=== PATIENT | female | born 1985 | race Caucasian/White ===

== ENCOUNTER 2024-05-04 18:52 | Emergency (ER) | payer OTHER, SELFPAY ==
[2024-05-04 19:07] VITALS: BP 170/102; PULSE 74; TEMP 36.7; O2SAT 98; BMI 44.4
--- NOTE | 2024-05-04 19:24 | PC.NURSE ---
Pt presents to ER for symptomatic HTN Pt states she had been feeling off for about a month and went to her PCP who started her on Metoprolol for HTN Pt states she also had lab work done which she reports was all normal Pt states she has been feeling slightly dizzy, headache, slight blurry vision and weakness Pt states at home her top number has been over 180 consistently.
--- NOTE | 2024-05-04 19:26 | ECG_ITS ---
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
--- NOTE | 2024-05-04 19:26 | XR_ITS ---
The [address] [address] Patient Name: FELI BURDEN MRN: [id number] date: 1985 Sex: F Assigned Patient Location: ED.MAIN Current Patient Location: ER Accession/Order Number: [id number] Exam Date: 05/04/2024 20:10 Report Date: 05/04/2024 20:50 At the request of: ERIC PALOMARES Procedure: XR chest 1V EXAM: XR chest 1V COMPARISON: 01/06/2023 CLINICAL INDICATION: Dizziness. FINDINGS: Evaluation slightly limited by patient body habitus. The cardiomediastinal silhouette is within normal limits. No focal consolidation. No pleural effusion. No pneumothorax. No evidence of acute osseous abnormality. XR/XR chest 1V IMPRESSION: No acute findings. Electronically authenticated by: JUAN MANNING Date: 05/04/2024 20:50
--- NOTE | 2024-05-04 19:35 | ED.GENADUL1 ---
HPI HPI - General Adult General Chief complaint: Recheck/Abnormal Lab/Rx Stated complaint: Dizziness Time Seen by Provider: 05/04/24 19:15 Source: patient Mode of arrival: walk-in Limitations: no limitations History of Present Illness HPI narrative: 38-year-old female to the emergency department with dizziness and feeling generally well since starting Toprol 2 days ago. She denies any chest pain or shortness of breath. She denies any fever, sweats, chills. No nausea vomiting diarrhea. She is otherwise been at her baseline health. She reports that she has a history of gestational hypertension. Was diagnosed with hypertension by nurse practitioner whom she saw in office. Related Data Previous Rx's ?Medication ?Instructions ?Recorded losartan 25 mg tablet 25 mg PO DAILY #30 tabs 05/04/24 Allergies Allergy/AdvReac Type Severity Reaction Status Date / Time cefaclor [From Ceclor] Allergy Verified 05/04/24 19:11 Penicillins Allergy Verified 05/04/24 19:11 Opioid HPI Opioid Management Most Recent Opioid Data: No Data to Display Review of Systems ROS Status of ROS 10 or more systems reviewed and unremarkable except as noted in history and below Exam Narrative Exam Narrative: VITALS: I have reviewed the triage vital signs. GENERAL: Well developed, well appearing adult in no acute distress. NEURO: Alert and oriented. Moves all extremities. Face is symmetric and expressive. EYES: PERRL. No scleral icterus or conjunctival injection. No discharge. HENT: Normocephalic, atraumatic. Hearing is grossly intact. Nares grossly patent and without discharge. Mucous membranes moist. NECK: No JVD. Patient moves neck without restriction. CARDIO: Rhythm regular. Normal rate. No murmur, rub, or gallop. Pulses equal bilaterally in the upper and lower extremity. No lower extremity edema. PULM: Lungs clear to auscultation in all sommers. No wheezes, rales, or rhonchi. No conversational dyspnea. No splinting, stridor, or accessory muscle use. GI/: Abdomen is soft and non-tender. Normoactive bowel sounds. EXTREMITIES: Symmetric muscle bulk. No joint swelling. No clubbing, cyanosis, or deformity. SKIN: Warm and dry. Normal turgor. No rash or lesions appreciated. PSYCH: Mood, affect, and interaction is appropriate to the setting. Constitutional Vital Signs, click to edit/add: Last Vital Signs Temp 98.0 F 05/04/24 19:07 Pulse 74 05/04/24 19:07 Resp 16 05/04/24 19:07 BP 158/94 H 05/04/24 20:55 Pulse Ox 98 05/04/24 19:07 Course Vital Signs Vital signs: Vital Signs Temperature 98.0 F 05/04/24 19:07 Pulse Rate 74 05/04/24 19:07 Respiratory Rate 16 05/04/24 19:07 Blood Pressure 170/102 H 05/04/24 19:07 Pulse Oximetry 98 05/04/24 19:07 Temperature 98.0 F 05/04/24 19:07 Pulse Rate 74 05/04/24 19:07 Respiratory Rate 16 05/04/24 19:07 Blood Pressure 158/94 H 05/04/24 20:55 Pulse Oximetry 98 05/04/24 19:07 Medical Decision Making MDM Narrative Medical decision making narrative: Well-appearing 38-year-old female to the emergency department chief complaint of dizziness, especially postural since starting metoprolol. Vital stable, the patient is hypertensive. Patient is afebrile. Cardiopulmonary examination is unremarkable. Will proceed with some screening labs. Symptoms likely secondary to metoprolol. Lab work is unremarkable. Troponin negative. Chest x-ray without acute findings. EKG without any evidence of ischemia or arrhythmia. Symptoms likely secondary to metoprolol given the temporal association. Will discontinue metoprolol. Patient is not trying to get , not planning on having further children, using contraceptives. test is negative. Will initiate losartan therapy for her hypertension. Will start at 25 mg daily. Daily blood pressure log. Low-sodium diet. Will follow-up with PCP for reassessment within the next week. Discussed that she should call the office tomorrow discuss her ED visit and change in medications with her PCP. Return precautions were discussed. All questions were answered. The patient was discharged home. Medical Records Medical records reviewed: Yes I reviewed the patient's medical records Lab Data Lab results reviewed: Yes I reviewed the patient's lab results Labs: Lab Results 05/04/24 05/04/24 Range/Units 19:52 19:53 WBC 8.5 (4.0-11.0) 10^3/uL RBC 4.59 (4.20-5.40) 10^6/uL Hgb 12.4 (12.0-16.0) g/dL Hct 38.0 (36.0-48.0) % MCV 82.8 (81.0-99.0) fL MCH 27.0 (26.7-34.0) pg MCHC 32.6 (29.9-35.2) g/dL RDW 13.2 (11.0-15.0) % Plt Count 235 (150-450) 10^3/uL MPV 10.6 (9.5-13.5) fL Neut % (Auto) 59.5 (43.0-75.0) % Lymph % (Auto) 31.8 (20.5-60.0) % Burnett % (Auto) 6.7 (1.7-12.0) % Eos % (Auto) 1.2 (0.9-7.0) % Baso % (Auto) 0.4 (0.2-2.0) % Neut # (Auto) 5.1 (1.4-6.5) 10^3/uL Lymph # (Auto) 2.7 (1.2-3.8) 10^3/uL Burnett # (Auto) 0.6 (0.3-0.8) 10^3/uL Eos # (Auto) 0.1 (0.0-0.7) 10^3/uL Baso # (Auto) 0.0 (0.0-0.1) 10^3/uL Abs Immat Gran (auto) 0.03 (0.00-0.03) 10^3/uL Imm/Tot Granulo (auto) 0.4 (0.0-0.5) % Sodium 138 (136-145) mmol/L Potassium 3.8 (3.5-5.1) mmol/L Chloride 105 (98-107) mmol/L Carbon Dioxide 31.4 (21.0-32.0) mmol/L Anion Gap 5.4 BUN 9.0 (7.0-18.0) mg/dL Creatinine 0.79 (0.55-1.02) mg/dL Est GFR ( Amer) >60 (>=60) Est GFR (Non-Af Amer) >60 (>=60) BUN/Creatinine Ratio 11.4 Glucose 91 (74-106) mg/dL Calcium 8.6 (8.5-10.1) mg/dL Troponin I High Sens 6.0 (4.0-51.3) pg/mL Serum HCG, Qual Negative (NEGATIVE) Urine Color Lt. yellow (YELLOW) Urine Clarity Clear (CLEAR) Urine pH 7.0 (5.0-9.0) Ur Specific [place] 1.020 (1.005-1.025) Urine Protein Negative (NEG/TRACE) mg/dL Urine Glucose (UA) Negative (NEGATIVE) mg/dL Urine Ketones Negative (NEGATIVE) mg/dL Urine Occult Blood Negative (NEGATIVE) Urine Nitrite Negative (NEGATIVE) Urine Bilirubin Negative (NEGATIVE) Urine Urobilinogen 1.0 (0.2-1.0) EU/dL Ur Leukocyte Esterase Small A (NEGATIVE) Urine RBC None seen (0-2) #/HPF Urine WBC 0-2 A (NONE SEEN) #/HPF Ur Squamous Epith Cells Few A (NONE/RARE) #/LPF Urine Crystals None seen (None Seen) #/HPF Urine Bacteria Trace A (NONE SEEN) #/HPF Urine Casts None seen (NONE SEEN) #/LPF Urine Mucus None seen (NONE SEEN) Ur Culture Indicated? No Imaging Data Chest x-ray: Attestation: I have reviewed the pertinent imaging results. Radiologist's impression: ITS Impressions Chest X-Ray 05/04/24 19:26 IMPRESSION: No acute findings. Electronically authenticated by: JUAN MANNING Date: 05/04/2024 20:50 ECG Data Attestation: I personally reviewed and interpreted this ECG as follows: (Normal sinus rhythm. Rate of 67. No STEMI. Normal QTc.) Discharge Plan Discharge Stand Alone Forms: Portal Instructions Chief Complaint: Recheck/Abnormal Lab/Rx Clinical Impression: Medication adverse effect, Hypertension Patient Disposition: Home, Self-Care Time of Disposition Decision: 20:55 Condition: Good Mode of Transportation: Private Vehicle Prescriptions / Home Meds: New losartan 25 mg tablet 25 mg PO DAILY Qty: 30 0RF Discontinued metoprolol succinate 50 mg tablet extended release 24 hr PO Print Language: Luxembourger Instructions: DASH Eating Plan (ED), Hypertension (ED) Additional Instructions: Call the office of your primary care doctor to arrange for follow-up within the above-stated timeframe. Follow-up with your primary care doctor about this ED visit. You should review your labs, imaging, and diagnoses from this ED visit with your primary care physician. There may be non-emergent findings that need further evaluation. If you were prescribed medications you should discuss possible side-effects and drug interactions with your pharmacist. Call 911 or go to the nearest Emergency Department if you develop any new or worsening symptoms. Seek immediate medical attention if you develop: worsening chest pain, new chest pain, nausea, vomiting, weakness, numbness, tingling, excessive sweating, shortness of breath, difficulty breathing, loss of motion in your arms or legs, or any new or worsening symptoms. Discontinue your metoprolol. Begin taking losartan. Keep daily blood pressure log. Call the office of your primary care doctor tomorrow notify them of your ED visit and that your metoprolol was discontinued. Referrals: CAILIN SHAHID [Primary Care Provider] - 1 week
[2024-05-04 20:00] LABS: Basophils Percent Auto 0.4 % (0.2-2.0); Eosinophils Absolute Auto 0.1 10^3/uL (0.0-0.7); Eosinophils Percent Auto 1.2 % (0.9-7.0); Hemoglobin 12.4 g/dL (12.0-16.0); Immature Granulocytes Abs Auto 0.03 10^3/uL (0.00-0.03); Immature Granulocytes Pct Auto 0.4 % (0.0-0.5); Lymphocytes Absolute Auto 2.7 10^3/uL (1.2-3.8); Lymphocytes Percent Auto 31.8 % (20.5-60.0); Mean Corpuscular HGB Conc 32.6 g/dL (29.9-35.2); Mean Corpuscular Volume 82.8 fL (81.0-99.0); Mean Platelet Volume 10.6 fL (9.5-13.5); Monocytes Absolute Auto 0.6 10^3/uL (0.3-0.8); Monocytes Percent Auto 6.7 % (1.7-12.0); Neutrophils Absolute Auto 5.1 10^3/uL (1.4-6.5); Neutrophils Percent Auto 59.5 % (43.0-75.0); Platelet Count 235 10^3/uL (150-450); Red Blood Count 4.59 10^6/uL (4.20-5.40); Red Cell Distribution Width 13.2 % (11.0-15.0); White Blood Count 8.5 10^3/uL (4.0-11.0)
[2024-05-04 20:03] LABS: Bilirubin Urine NEGATIVE (NEGATIVE); Blood Urine NEGATIVE (NEGATIVE); Clarity Urine CLEAR (CLEAR); Color Urine LT. YELLOW (YELLOW); Glucose Urine UA NEGATIVE (NEGATIVE); Ketones Urine NEGATIVE (NEGATIVE); Leukocyte Esterase Urine SMALL (NEGATIVE); Nitrite Urine NEGATIVE (NEGATIVE); Protein Urine NEGATIVE (NEG/TRACE)
[2024-05-04 20:09] LABS: HCG Qualitative NEGATIVE (NEGATIVE); Internal Control Within Normal Limits
[2024-05-04 20:10] LABS: RBC Urine NONE SEEN #/HPF (0-2); Urine Microscopic Indicated YES; WBC Urine 0-2 #/HPF (NONE SEEN)
[2024-05-04 20:11] LABS: Bacteria Urine TRACE #/HPF (NONE SEEN); Cast Seen? NONE SEEN #/LPF (NONE SEEN); Crystals Seen? None Seen #/HPF (None Seen); Mucus Urine NONE SEEN (NONE SEEN); Squamous Epithelial Cell Urine FEW #/LPF (NONE/RARE); Urine Culture Indicated NO
[2024-05-04 20:17] LABS: Anion Gap 5.4; BUN Creatinine Ratio 11.4; Calcium 8.6 mg/dL (8.5-10.1); Carbon Dioxide 31.4 mmol/L (21.0-32.0); Chloride 105 mmol/L (98-107); Estimated GFR (African America >60 (>=60); Estimated GFR (Non-African Ame >60 (>=60); Glucose 91 mg/dL (74-106); Potassium 3.8 mmol/L (3.5-5.1); Sodium 138 mmol/L (136-145)
[2024-05-04 20:55] VITALS: BP 158/94
== END 2024-05-04 21:21 | disposition home or self-care (01) ==
PROVIDERS: Emergency Provider Student in an Organized Health Care Education/Training Program; PCP Family Medicine
DX: I10 Essential (primary) hypertension (principal); T44.7X5A Adverse effect of beta-adrenoreceptor antagonists, initial encounter
CPT/HCPCS: 36415; 71045; 80048; 81001; 84484; 84703; 85025; 93005; 99285

== ENCOUNTER 2024-05-08 06:54 | Outpatient (OUT) | payer OTHER, SELFPAY ==
--- NOTE | 2024-05-08 06:56 | MM_ITS ---
Patient Name: FELI BURDEN MR#: [id number] : 1985 Exam Date: 05/08/2024 Ordering Doctor: DR EDMUNDO DAVILA RADIOLOGY REPORT PROCEDURE: MM TOMOSYNTHESIS SCREENING BI COMPARISON: None. INDICATIONS: Screening Calculator Name NCI Breast Cancer Risk Assessment Tool 5 Year Breast Cancer Risk 0.80% Lifetime Breast Cancer Risk 14.80% Personal Breast Cancer No Personal Ovarian Cancer No Treatments None Family Cancers Grandmother-maternal with ovarian cancer at age 68; Grandfather-paternal with lung/lymphoma cancer at age 75. LOCATION: [facility] BREAST COMPOSITION: There are scattered areas of fibroglandular density. FINDINGS: DIAGNOSTIC CATEGORY 2--BENIGN FINDING. NO CHANGE FROM COMPARISON. Scattered benign-appearing nodules are present. Scattered benign-appearing calcifications are present. Scattered benign-appearing lymph nodes are present. RIGHT BREAST: No significant suspicious finding. LEFT BREAST: No significant suspicious finding. RECOMMENDATIONS: ROUTINE MAMMOGRAM AND CLINICAL EVALUATION IN 12 MONTHS. PLEASE NOTE: A NORMAL MAMMOGRAM DOES NOT EXCLUDE THE POSSIBILITY OF BREAST CANCER. A CLINICALLY SUSPICIOUS PALPABLE LUMP SHOULD BE BIOPSIED. Dictated by: Naeem Alberts MD on 05/08/2024 at 09:57 Approved by: Naeem Alberts MD on 05/08/2024 at 09:58
--- OUTSIDE RECORDS SUMMARY | 2024-05-08 06:56 | XMS_ITS | CCD ---
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 Name Role Phone KSENIA ., DR HOLT Consulting Unavailable KSENIA ., DR HOLT Attending Unavailable KSENIA ., DR HOLT Admitting Unavailable REQUEST, NONE LISTED Primary Care Unavaila ble KSENIA ., DR HOLT Consulting Unavailable KLEBER, DR SIMEON Primary Care Unavailable KSENIA ., DR HOLT Admitting Unavailable KSENIA ., DR HOLT Attending Unavailable KSENIA ., DR HOLT Admitting Unavailable KSENIA ., DR HOLT Consulting Unavailable KSENIA ., DR HOLT Attending Unavailable REQUEST, DR NONE LISTED Primary Care Unavaila ble KSENIA ., DR HOLT Attending Unavailable KSENIA ., DR HOLT Admitting Unavailable REQUEST, DR GAFFNEY LISTED Primary Care Unavaila ble KSENIA ., DR HOLT Consulting Unavailable KSENIA ., DR HOLT Attending Unavailable KSENIA ., DR HOLT Admitting Unavailable REQUEST, DR GAFFNEY LISTED Primary Care Unavaila ble KSENIA ., DR HOLT Consulting Unavailable KSENIA ., DR HOLT Admitting Unavailable KSENIA ., DR HOLT Consulting Unavailable REQUEST, DR NONE LISTED Primary Care Unavaila ble KSENIA ., DR HOLT Attending Unavailable KSENIA ., DR HOLT Attending Unavailable KSENIA ., DR HOLT Admitting Unavailable REQUEST, NONE LISTED Primary Care Unavaila ble KSENIA ., DR HOLT Consulting Unavailable KSENIA ., DR HOLT Attending Unavailable KSENIA ., DR HOLT Admitting Unavailable KSENIA ., DR HOLT Consulting Unavailable REQUEST, NONE LISTED Primary Care Unavaila ble KSENIA ., DR HOLT Consulting Unavailable KSENIA ., DR HOLT Attending Unavailable KSENIA ., DR HOLT Admitting Unavailable REQUEST, DR NONE LISTED Primary Care Unavaila ble KSENIA ., DR HOLT Consulting Unavailable KSENIA ., DR HOLT Admitting Unavailable KSENIA ., DR HOLT Attending Unavailable REQUEST, NONE LISTED Primary Care Unavaila ble KSENIA ., DR HOLT Consulting Unavailable KSENIA ., DR HOLT Attending Unavailable KSENIA ., DR HOLT Admitting Unavailable REQUEST, DR GAFFNEY LISTED Primary Care Unavaila ble KSENIA ., DR HOLT Attending Unavailable KSENIA ., DR HOLT Admitting Unavailable KSENIA ., DR HOLT Consulting Unavailable REQUEST, NONE LISTED Primary Care Unavaila ble KSENIA ., DR HOLT Attending Unavailable KSENIA ., DR HOLT Admitting Unavailable KSENIA ., DR HOLT Consulting Unavailable REQUEST, NONE LISTED Primary Care Unavaila ble KSENIA ., DR HOLT Consulting Unavailable KSENIA ., DR HOLT Admitting Unavailable KSENIA ., DR HOLT Attending Unavailable REQUEST, NONE LISTED Primary Care Unavaila ble ROB, ZAKIYA Attending Unavailable ROB, ZAKIYA Admitting Unavailable KLEBER, DR SIMEON Primary Care Unavailable ROB, ZAKIYA Consulting Unavailable [employer] Consulting Unavailable KSENIA ., DR HLOT Consulting Unavailable KSENIA ., DR HOLT Admitting Unavailable KSENIA ., DR HOLT Attending Unavailable REQUEST, NONE LISTED Primary Care Unavaila ble KSENIA ., DR HOLT Attending Unavailable KSENIA ., DR HOLT Admitting Unavailable REQUEST, DR GAFFNEY LISTED Primary Care Unavaila ble KSENIA ., DR HOLT Consulting Unavailable EDMUNDO YANG Attending Unavailable Allergies Allergy Classification Reported Allergen(s) Allergy Type Date of Onset Reaction(s) Facility (1 source) Cefaclor Drug Allergy 09-29-2014 [facility] (1 source) Penicillin Drug Allergy 11-18-2019 [facility] Problems Active Problems Problem Classification Problem Date Documented Date Episodic/Chronic Acute bronchitis (1 source) Acute bronchitis, unspecified; Translations: [ACUTE BRONCHITIS UNSPECIFIED] Onset: 01-08-2023 Episodic Attention-deficit, conduct, and disruptive behavior disorders (1 source) Attention-deficit hyperactivity disorder, unspecified type; Translations: [ADHD UNSPECIFIED TYPE] Onset: 01-08-2023 Chronic Menstrual disorders (5 sources) Irregular menstruation, unspecified; Translations: [IRREGULAR MENSTRUATION UNSPECIFIED] Onset: 08-30-2022 Chronic Other aftercare (1 source) 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; Translations: [OTH NURSING HOME CURRENT DRUG THERAPY] Onset: 01-08-2023 Episodic Other endocrine disorders (4 sources) Polycystic ovarian syndrome; Translations: [POLYCYSTIC OVARIAN SYNDROME] Onset: 12-21-2022 Chronic Unclassified (2 sources) COUGH, UNSPECIFIED; Translations: [COUGH, UNSPECIFIED] Onset: 01-08-2023 Unclassified (1 source) CONTACT W/AND (SUSP) EXPOS COVID-19; Translations: [CONTACT W/AND (SUSP) EXPOS COVID-19] Onset: 01-08-2023 Past or Other Problems Problem Classification Problem Date Documented Da te Episodic/Chronic Contraceptive and procreative management (4 sources) Encounter for other procreative management; Translations: [ENC OTHER PROCREATIVE MANAGEMENT] Onset: 09-03-2022 Episodic Unclassified (1 source) COUGH, UNSPECIFIED; Translations: [COUGH, UNSPECIFIED] Onset: 01-06-2023 Results Test Name Value Interpretation Reference Range Facility BNPon 01-06-2023 Natriuretic peptide B (Bld) [Mass/Vol] 30.0 pg/mL Normal <=450.0 [facility] Comment on above: Performed By: #### D DIM #### [facility] [address] [address] [address] Yocasta Rae CARDIAC ESTEFANI ADMITon 023 CK [Catalytic activity/Vol] 119 U/L Normal 26-192 [facility] Comment on above: Performed By: #### D DIM #### [facility] [address] [address] [address] Yocasta Rae CK.MB [Mass/Vol] 2.09 ng/mL Normal <=3.60 [facility] Comment on above: Performed By: #### D DIM #### [facility] [address] [address] [address] Yocasta Rae HSTROP 4.8 pg/mL Normal 4.0-51.3 [facility] Comment on above: Result Comment: CUT- OFF POINTS HAVE BEEN ESTABLISHED BASED ON THE FOURTH UNIVERSAL DEFINITIONS OF MYOCARDIAL INFARCTION. THE UPPER REFERENCE LIMIT (URL) OF TROPONIN, DEFINED THE 99TH PERCENTILE OF cTnI DISTRIBUTION IN A REFERENCE POPULATION, HAS BEEN CONFIRMED THE DECISION THRESHOLD FOR WI DIAGNOSIS. Performed By: #### D DIM #### [facility] [address] [place] [address] Dr. Yocasta Rae KIKA 43 ng/mL Normal 9-82 [facility] Comment on above: Performed By: #### D DIM #### [facility] [address] [place] [address] Dr. Yocasta Rae CBC AUTO DIFFon 01-06-2023 BASO # 0.0 103/ul Normal 0.0-0.1 [facility] Comment on above: Performed By: #### P REGQNT #### [facility] [address] [place] [address] Dr. Yocasta Rae Basophils/100 WBC (Bld) 0.5 % Normal 0.2-2.0 [facility] Comment on above: Performed By: #### P REGQNT #### [facility] [address] [place] [address] Dr. Yocasta Rae EO # 0.2 103/ul Normal 0.0-0.7 [facility] Comment on above: Performed By: #### P REGQNT #### [facility] [address] [place] [address] Dr. Yocasta Rae Eosinophils/100 WBC (Bld) 2.5 % Normal 0.9-7.0 [facility] Comment on above: Performed By: #### P REGQNT #### [facility] [address] [place] [address] Dr. Yocasta Rae Erythrocyte distribution width (RBC) [Ratio] 14.6 % Normal 11.0-15.0 [facility] Comment on above: Performed By: #### P REGQNT #### [facility] [address] [place] [address] Dr. Yocasta Rae Hematocrit (Bld) [Volume fraction] 33.6 % Critically low 36.0-48.0 [facility] Comment on above: Performed By: #### P REGQNT #### [facility] [address] [place] [address] Dr. Yocasta Rae Hemoglobin (Bld) [Mass/Vol] 12.0 g/dL Normal 12.0-16.0 [facility] Comment on above: Performed By: #### P REGQNT #### [facility] [address] [address] [address] Yocasta Rae IG # 0.02 10e3/ul Normal 0.00-0.03 [facility] Comment on above: Performed By: #### P REGQNT #### [facility] [address] [address] [address] Yocasta Rae IG % 0.3 % Normal 0.0-0.5 [facility] Comment on above: Performed By: #### P REGQNT #### [facility] [address] [address] [address] Yocasta Rae LYMPH # 2.6 103/ul Normal 1.2-3.8 [facility] Comment on above: Performed By: #### P REGQNT #### [facility] [address] [place] [address] Dr. Yocasta Rae Lymphocytes/100 WBC (Bld) 33.1 % Normal 20.5-60.0 [facility] Comment on above: Performed By: #### P REGQNT #### [facility] [address] [address] [address] Yocasta Rae MANUAL DIFF REQ NO Normal [facility] Comment on above: Performed By: #### P REGQNT #### [facility] [address] [address] [address] Yocasta Rae MCH (RBC) [Entitic mass] 31.7 pg Normal 26.7-34.0 [facility] Comment on above: Performed By: #### P REGQNT #### [facility] [address] [address] [address] Yocasta Rae MCHC (RBC) [Mass/Vol] 35.7 g/dL Critically high 29.9-35.2 [facility] Comment on above: Performed By: #### P REGQNT #### [facility] [address] [address] [address] Yocasta Rae MCV (RBC) [Entitic vol] 88.9 fL Normal 81.0-99.0 [facility] Comment on above: Performed By: #### P REGQNT #### [facility] [address] [address] [address] Yocasta Rae MONO # 0.8 103/ul Normal 0.3-0.8 [facility] Comment on above: Performed By: #### P REGQNT #### [facility] [address] [address] [address] Yocasta Rae Monocytes/100 WBC (Bld) 10.2 % Normal 1.7-12.0 [facility] Comment on above: Performed By: #### P REGQNT #### [facility] [address] [address] [address] Yocasta Rae NEUT # 4.2 103/ul Normal 1.4-6.5 [facility] Comment on above: Performed By: #### P REGQNT #### [facility] [address] [place] [address] Dr. Yocasta Rae Neutrophils/100 WBC (Bld) 53.4 % Normal 43.0-75.0 [facility] Comment on above: Performed By: #### P REGQNT #### [facility] [address] [address] [address] Yocasta Rae Platelet mean volume (Bld) [Entitic vol] 10.4 fL Normal 9.5-13.5 [facility] Comment on above: Performed By: #### P REGQNT #### [facility] [address] [address] [address] Yocasta Rae PLT 234 103/ul Normal 150-450 [facility] Comment on above: Performed By: #### P REGQNT #### [facility] [address] [address] [address] Yocasta Rae RBC 3.78 106/ul Critically low 4.20-5.40 [facility] Comment on above: Performed By: #### P REGQNT #### [facility] [address] [address] [address] Yocasta Rae WBC 7.9 103/ul Normal 4.0-11.0 [facility] Comment on above: Performed By: #### P REGQNT #### [facility] [address] [address] [address] Yocasta Rae Covid-19 PCR ([facility])on 12-19 SARS-CoV-2 (COVID-19) RNA ИВАН+probe Ql (Unsp spec) Not detected Normal NOT DETECTED [facility] Comment on above: Result Comment: When diagnostic testing is negative, the possibility of a false negative should be considered in the context of a patient's recent exposures and the presence of clinical signs and symptoms consistent with SARS-CoV-2. This test is not yet approved or cleared by the [place] FDA. When there are no FDA-approved or cleared tests available, and other criteria are met, FDA can make tests available under an emergency access mechanism called an Emergency Use Authorization (EUA). The EUA for this test is supported by the [place] of Health and Human Service's declaration that circumstances exist to justify the emergency use of in vitro diagnostics for the detection and/or diagnosis of the virus that causes COVID-19. This EUA will remain in effect for the duration of the COVID-19 declaration justifying emergency of IVDs, unless it is terminated or revoked by the FDA (after which the test may no longer be used). Performed By: #### P REGQNT #### [facility] [address] [address] [address] Yocasta Rae D-DIMERon 01-06-2023 D-DIMER 0.56 mg/L FEU Normal <=0.59 [facility] Comment on above: Performed By: #### D DIM #### [facility] [address] [address] [address] Yocasta Rae D-DIMER COMMENTS SEE BELOW Normal [facility] Comment on above: Result Comment: Incr eases in D-Dimer concentration observed with thromboembolic events can be variable due to localization, size, and age of the thrombus. Therefore, a thromboembolic event cannot be diagnosed with certainty on the basis of the reference range. D-Dimers may also be elevated for a variety of disorders including: advanced age, , coronary disease, cancer, liver disease, infection, inflammation, hematoma, DIC, trauma, post-surgery, diabetes, thrombolytic or anticoagulant therapy, stress, and generalized hospitalization. Performed By: #### D DIM #### [facility] [address] [place] [address] Dr. Yocasta Rae INFLUENZA A AND B AGon 01-06 [facility] SEE BELOW Normal [facility] Comment on above: Result Comment: Nega tive for Flu A protein angiten. Infection due to Flu A cannot be ruled out. Flu A angiten in the sample may be below the detection limit of the test. Performed By: #### D DIM #### [facility] [address] [place] [address] Dr. [facility] Normal [facility] Comment on above: Result Comment: Nega tive for Flu B protein antigen. Infection due to Flu B cannot be ruled out. Flu B antigen in the sample may be below the detection limit of the test. Performed By: #### D DIM #### [facility] [address] [place] [address] Dr. Yocasta Rea INFLUENZA A AG Negative Normal NEGATIVE SEE COMMENT [facility] Comment on above: Performed By: #### D DIM #### [facility] [address] [place] [address] Dr. Yocasta Rae INFLUENZA B AG Negative Normal NEGATIVE SEE COMMENT [facility] Comment on above: Performed By: #### D DIM #### [facility] [address] [place] [address] Dr. Yocasta Rae PROF CHEM 8 (BAS METB)on Anion gap [Moles/Vol] 8.3 mmol/L Normal [facility] Comment on above: Performed By: #### D DIM #### [facility] [address] [place] [address] Dr. Yocasta Rae Calcium [Mass/Vol] 8.5 mg/dL Normal 8.5-10.1 [facility] Comment on above: Performed By: #### D DIM #### [facility] [address] [place] [address] Dr. Yocasta Rae Chloride [Moles/Vol] 104 mmol/L Normal 98-107 [facility] Comment on above: Performed By: #### D DIM #### [facility] [address] [address] [address] Yocasta Rae CO2 [Moles/Vol] 27.1 mmol/L Normal 21.0-32.0 [facility] Comment on above: Performed By: #### D DIM #### [facility] [address] [address] [address] Yocasta Rae Creatinine [Mass/Vol] 0.57 mg/dL Normal 0.55-1.02 [facility] Comment on above: Performed By: #### D DIM #### [facility] [address] [address] [address] Yocasta Rae EGFR-AF HAITIAN >60 Normal >=60 [facility] Comment on above: Performed By: #### D DIM #### [facility] [address] [address] [address] Yocasta Rae EGFR-NON AF HAITIAN >60 Normal >=60 [facility] Comment on above: Performed By: #### D DIM #### [facility] [address] [address] [address] Yocasta Rae Glucose [Mass/Vol] 97 mg/dL Normal 74-106 [facility] Comment on above: Performed By: #### D DIM #### [facility] [address] [address] [address] Yocasta Rae Potassium [Moles/Vol] 3.4 mmol/L Critically low 3.5-5.1 [facility] Comment on above: Performed By: #### D DIM #### [facility] [address] [address] [address] Yocasta Rae Sodium [Moles/Vol] 136 mmol/L Normal 136-145 [facility] Comment on above: Performed By: #### D DIM #### [facility] [address] [address] [address] Yocasta Rae Urea nitrogen [Mass/Vol] 10.0 mg/dL Normal 7.0-18.0 [facility] Comment on above: Performed By: #### D DIM #### [facility] [address] [place] [address] Dr. Yocasta Rae Urea nitrogen/Creatinine [Mass ratio] 17.5 mg/mg Normal [facility] Comment on above: Performed By: #### D DIM #### [facility] [address] [place] [address] Dr. Yocasta Rae XR CHEST 1 Von 01-06-2023 XR CHEST 1 V EXAM: Chest x-ray HISTORY: . SHORTNESS OF BREATH . COMPARISON: None. TECHNIQUE: Single view of the chest FINDINGS: Heart and vascularity are unremarkable. Lungs are expanded and free of focal infiltrates. Grossly no bony abnormality is appreciated. IMPRESSION: No acute heart or lung disease identified. Electronically authenticated by: [employer] Date: 2023-01-06 21:39 Normal [facility] PREG QUANT HCGon 12-28-2022 HCG QUANT <1 Normal [facility] Comment on above: Performed By: #### P REGQNT #### [facility] [address] [place] [address] Dr. Yocasta Rae HCG RANGE SEE BELOW Normal [facility] Comment on above: Result Comment: 5-50 0.2-1 WEEK 50-500 1-2 WEEKS 100-5,000 2-3 WEEKS 500-10,000 3-4 WEEKS 1,000-50,000 4-5 WEEKS 10,000-100,000 5-6 WEEKS 15,000-200,000 6-8 WEEKS 10,000-100,000 2-3 MONTHS Performed By: #### P REGQNT #### [facility] [address] [place] [address] Dr. Yocasta Rae PREG QUANT HCGon 12-25-2022 HCG QUANT <1 Normal [facility] Comment on above: Performed By: #### P REGQNT #### [facility] [address] [place] [address] Dr. Yocasta Rae HCG RANGE SEE BELOW Normal [facility] Comment on above: Result Comment: 5-50 0.2-1 WEEK 50-500 1-2 WEEKS 100-5,000 2-3 WEEKS 500-10,000 3-4 WEEKS 1,000-50,000 4-5 WEEKS 10,000-100,000 5-6 WEEKS 15,000-200,000 6-8 WEEKS 10,000-100,000 2-3 MONTHS Performed By: #### P REGQNT #### [facility] [address] [place] [address] Dr. Yocasta Rae PROGESTERONEon 12-22-2022 Progesterone 20.7 ng/mL Normal [facility] Comment on above: Result Comment: Foll icular phase 0.1 - 0.9 Luteal phase 1.8 - 23.9 Ovulation phase 0.1 - 12.0 First trimester 11.0 - 44.3 Second trimester 25.4 - 83.3 Third trimester 58.7 - 214.0 Postmenopausal 0.0 - 0.1 Performed By: #### P REGQNT #### [facility] [address] [place] [address] Dr. Yocasta Rae PROGESTERONEon 10-28-2022 Progesterone 5.9 ng/mL Normal [facility] Comment on above: Result Comment: Foll icular phase 0.1 - 0.9 Luteal phase 1.8 - 23.9 Ovulation phase 0.1 - 12.0 First trimester 11.0 - 44.3 Second trimester 25.4 - 83.3 Third trimester 58.7 - 214.0 Postmenopausal 0.0 - 0.1 Performed By: #### D DIM #### [facility] [address] [place] [address] Dr. Yocasta Rae PROGESTERONEon 09-26-2022 Progesterone 16.1 ng/mL Normal [facility] Comment on above: Result Comment: Foll icular phase 0.1 - 0.9 Luteal phase 1.8 - 23.9 Ovulation phase 0.1 - 12.0 First trimester 11.0 - 44.3 Second trimester 25.4 - 83.3 Third trimester 58.7 - 214.0 Postmenopausal 0.0 - 0.1 Performed By: #### D DIM #### [facility] [address] [place] [address] Dr. Yocasta Rae ANTI-MULLERIAN HORMONEon Anti-Mullerian Hormone (AMH) 1.22 ng/mL [facility] Comment on above: Result Comment: For assays employing antibodies, the possibility exists for interference by heterophile antibodies in the samples.1 1.Analilia العلي Interferences in Immunoassays - still a threat. Clin. Chem. 2000; 46: 6047-1274. This test was developed and its performance characteristics determined by [employer]. It has not been cleared or approved by the Food and Drug Administration. Reference Range: Females 36 - 40y: 0.42 - 8.34 Median 1.69 AMH concentrations of >= 1.06 ng/mL is correlated with a better response to ovarian stimulation, produced more retrievable oocytes and higher odds of live according to Avni et al. Fertility and Sterility. 2010: 94:3219-4736. The current AMH test method correlates with the study method with a slope of 0.94. Females at risk of ovarian hyperstimulation syndrome or polycystic ovarian syndrome (PCOS) may exhibit elevated serum AMH concentrations. AMH levels from PCOS patients may be 2 to 5 fold higher than age-appropriate reference interval values. Granulosa cell tumors of the ovary may secrete AMH along with other tumor markers. Elevated AMH is not specific for malignancy, and the assay should not be used exclusively to diagnose or exclude an AMH-secreting ovarian tumor. Performed By: #### D DIM #### [facility] [address] [place] [address] Dr. Yocasta Rae CBC AUTO DIFFon 09-03-2022 BASO # 0.0 103/ul Normal 0.0-0.1 [facility] Comment on above: Performed By: #### P REGQNT #### [facility] [address] [place] [address] Dr. Yocasta Rae Basophils/100 WBC (Bld) 0.4 % Normal 0.2-2.0 [facility] Comment on above: Performed By: #### P REGQNT #### [facility] [address] [place] [address] Dr. Yocasta Rae EO # 0.1 103/ul Normal 0.0-0.7 [facility] Comment on above: Performed By: #### P REGQNT #### [facility] [address] [place] [address] Dr. Yocasta Rae Eosinophils/100 WBC (Bld) 1.5 % Normal 0.9-7.0 [facility] Comment on above: Performed By: #### P REGQNT #### [facility] [address] [place] [address] Dr. Yocasta Rae Erythrocyte distribution width (RBC) [Ratio] 12.7 % Normal 11.0-15.0 [facility] Comment on above: Performed By: #### P REGQNT #### [facility] [address] [place] [address] Dr. Yocasta Rae Hematocrit (Bld) [Volume fraction] 39.7 % Normal 36.0-48.0 [facility] Comment on above: Performed By: #### P REGQNT #### [facility] [address] [place] [address] Dr. Yocasta Rae Hemoglobin (Bld) [Mass/Vol] 12.9 g/dL Normal 12.0-16.0 [facility] Comment on above: Performed By: #### P REGQNT #### [facility] [address] [place] [address] Dr. Yocasta Rae IG # 0.02 10e3/ul Normal 0.00-0.03 [facility] Comment on above: Performed By: #### P REGQNT #### [facility] [address] [place] [address] Dr. Yocasta Rae IG % 0.2 % Normal 0.0-0.5 [facility] Comment on above: Performed By: #### P REGQNT #### [facility] [address] [place] [address] Dr. Yocasta Rae LYMPH # 2.0 103/ul Normal 1.2-3.8 [facility] Comment on above: Performed By: #### P REGQNT #### [facility] [address] [place] [address] Dr. Yocasta Rae Lymphocytes/100 WBC (Bld) 25.0 % Normal 20.5-60.0 [facility] Comment on above: Performed By: #### P REGQNT #### [facility] [address] [place] [address] Dr. Yocasta Rae MANUAL DIFF REQ NO Normal [facility] Comment on above: Performed By: #### P REGQNT #### [facility] [address] [address] [address] Yocasta Rae MCH (RBC) [Entitic mass] 28.1 pg Normal 26.7-34.0 [facility] Comment on above: Performed By: #### P REGQNT #### [facility] [address] [place] [address] Dr. Yocasta Rae MCHC (RBC) [Mass/Vol] 32.5 g/dL Normal 29.9-35.2 [facility] Comment on above: Performed By: #### P REGQNT #### [facility] [address] [place] [address] Dr. Yocasta Rae MCV (RBC) [Entitic vol] 86.5 fL Normal 81.0-99.0 [facility] Comment on above: Performed By: #### P REGQNT #### [facility] [address] [place] [address] Dr. Yocasta Rae MONO # 0.5 103/ul Normal 0.3-0.8 [facility] Comment on above: Performed By: #### P REGQNT #### [facility] [address] [place] [address] Dr. Yocasta Rae Monocytes/100 WBC (Bld) 6.7 % Normal 1.7-12.0 [facility] Comment on above: Performed By: #### P REGQNT #### [facility] [address] [place] [address] Dr. Yocasta Rae NEUT # 5.3 103/ul Normal 1.4-6.5 [facility] Comment on above: Performed By: #### P REGQNT #### [facility] [address] [place] [address] Dr. Yocasta Rae Neutrophils/100 WBC (Bld) 66.2 % Normal 43.0-75.0 [facility] Comment on above: Performed By: #### P REGQNT #### [facility] [address] [place] [address] Dr. Yocasta Rae Platelet mean volume (Bld) [Entitic vol] 10.7 fL Normal 9.5-13.5 [facility] Comment on above: Performed By: #### P REGQNT #### [facility] [address] [place] [address] Dr. Yocasta Rae PLT 238 103/ul Normal 150-450 [facility] Comment on above: Performed By: #### P REGQNT #### [facility] [address] [place] [address] Dr. Yocasta Rae RBC 4.59 106/ul Normal 4.20-5.40 [facility] Comment on above: Performed By: #### P REGQNT #### [facility] [address] [place] [address] Dr. Yocasta Rae WBC 8.1 103/ul Normal 4.0-11.0 [facility] Comment on above: Performed By: #### P REGQNT #### [facility] [address] [place] [address] Dr. Yocasta Rae GLYCOHEMOGLOBIN A1Con 2021 ADA RECOMMENDATION SEE BELOW Normal [facility] Comment on above: Result Comment: ADA RECOMMENDED LIMIT 4.0 - 6.0 ADA THERAPEUTIC TARGET < 7.0 ACTION SUGGESTED > 7.0 Performed By: #### A 1C #### [facility] [address] [place] [address] Dr. Yocasta Rae Glucose [Mass/Vol] 120 mg/dL Normal [facility] Comment on above: Performed By: #### A 1C #### [facility] [address] [place] [address] Dr. Yocasta Rae HbA1c (Bld) [Mass fraction] 5.8 % Normal 4.5-6.2 [facility] Comment on above: Performed By: #### A 1C #### [facility] [address] [place] [address] Dr. Yocasta Rae TSHon 09-03-2022 TSH 2.328 uIU/mL Normal 0.358-3.740 [facility] Comment on above: Performed By: #### T SH #### [facility] [address] [place] [address] Dr. Yocasta Rae PROGESTERONEon 08-28-2022 Progesterone 7.6 ng/mL Normal [facility] Comment on above: Result Comment: Foll icular phase 0.1 - 0.9 Luteal phase 1.8 - 23.9 Ovulation phase 0.1 - 12.0 First trimester 11.0 - 44.3 Second trimester 25.4 - 83.3 Third trimester 58.7 - 214.0 Postmenopausal 0.0 - 0.1 Performed By: #### D DIM #### [facility] [address] [place] [address] Dr. Yocasta Rae PREG QUANT HCGon 08-04-2022 HCG QUANT <1 Normal [facility] Comment on above: Performed By: #### P REGQNT #### [facility] [address] [place] [address] Dr. Yocasta Rae HCG RANGE SEE BELOW Normal [facility] Comment on above: Result Comment: 5-50 0.2-1 WEEK 50-500 1-2 WEEKS 100-5,000 2-3 WEEKS 500-10,000 3-4 WEEKS 1,000-50,000 4-5 WEEKS 10,000-100,000 5-6 WEEKS 15,000-200,000 6-8 WEEKS 10,000-100,000 2-3 MONTHS Performed By: #### P REGQNT #### [facility] [address] [place] [address] Dr. Yocasta Rae PROGESTERONEon 07-29-2022 Progesterone 10.9 ng/mL Normal [facility] Comment on above: Result Comment: Foll icular phase 0.1 - 0.9 Luteal phase 1.8 - 23.9 Ovulation phase 0.1 - 12.0 First trimester 11.0 - 44.3 Second trimester 25.4 - 83.3 Third trimester 58.7 - 214.0 Postmenopausal 0.0 - 0.1 Performed By: #### P ROGES #### [facility] [address] [place] [address] Dr. Yocasta Rae PROGESTERONEon 06-26-2022 Progesterone 6.9 ng/mL Normal [facility] Comment on above: Result Comment: Foll icular phase 0.1 - 0.9 Luteal phase 1.8 - 23.9 Ovulation phase 0.1 - 12.0 First trimester 11.0 - 44.3 Second trimester 25.4 - 83.3 Third trimester 58.7 - 214.0 Postmenopausal 0.0 - 0.1 Performed By: #### P PASHAES #### [facility] [address] [place] [address] Dr. Yocasta Rae PROGESTERONEon 06-24-2022 Progesterone 4.9 ng/mL Normal [facility] Comment on above: Result Comment: Foll icular phase 0.1 - 0.9 Luteal phase 1.8 - 23.9 Ovulation phase 0.1 - 12.0 First trimester 11.0 - 44.3 Second trimester 25.4 - 83.3 Third trimester 58.7 - 214.0 Postmenopausal 0.0 - 0.1 Performed By: #### P AIDEE #### [facility] [address] [place] [address] Dr. Yocasta Rae PROGESTERONEon 05-29-2022 Progesterone 5.9 ng/mL Normal [facility] Comment on above: Result Comment: Foll icular phase 0.1 - 0.9 Luteal phase 1.8 - 23.9 Ovulation phase 0.1 - 12.0 First trimester 11.0 - 44.3 Second trimester 25.4 - 83.3 Third trimester 58.7 - 214.0 Postmenopausal 0.0 - 0.1 Performed By: #### P AIDEE #### [facility] [address] [place] [address] Dr. Yocasta Rae PROGESTERONEon 03-30-2022 Progesterone 8.8 ng/mL Normal [facility] Comment on above: Result Comment: Foll icular phase 0.1 - 0.9 Luteal phase 1.8 - 23.9 Ovulation phase 0.1 - 12.0 First trimester 11.0 - 44.3 Second trimester 25.4 - 83.3 Third trimester 58.7 - 214.0 Postmenopausal 0.0 - 0.1 Performed By: #### P AIDEE #### [facility] [address] [place] [address] Dr. Yocasta Rae PREG QUANT HCGon 03-05-2022 HCG QUANT <1 Normal [facility] Comment on above: Performed By: #### P REGQNT #### [facility] [address] [place] [address] Dr. Yocasta Rae HCG RANGE SEE BELOW Normal [facility] Comment on above: Result Comment: 5-50 0-1 WEEK 40-300 1-2 WEEKS 100-1,000 2-3 WEEKS 500-6,000 3-4 WEEKS 5,000-200,000 1-2 MONTHS 10,000-100,000 2-3 MONTHS 3,000-50,000 2ND TRIMESTER 1,000-50,000 3RD TRIMESTER Performed By: #### P REGQNT #### [facility] [address] [place] [address] Dr. Yocasta Rae PROGESTERONEon 02-27-2022 Progesterone 5.1 ng/mL Normal [facility] Comment on above: Result Comment: Foll icular phase 0.1 - 0.9 Luteal phase 1.8 - 23.9 Ovulation phase 0.1 - 12.0 First trimester 11.0 - 44.3 Second trimester 25.4 - 83.3 Third trimester 58.7 - 214.0 Postmenopausal 0.0 - 0.1 Performed By: #### P REGQNT #### [facility] [address] [place] [address] Dr. Yocasta Rae PREG QUANT HCGon 02-02-2022 HCG QUANT <1 Normal [facility] Comment on above: Performed By: #### P REGQNT #### [facility] [address] [place] [address] Dr. Yocasta Rae HCG RANGE SEE BELOW Normal [facility] Comment on above: Result Comment: 50 0-1 WEEK 40-300 1-2 WEEKS 100-1,000 2-3 WEEKS 500-6,000 3-4 WEEKS 5,000-200,000 1-2 MONTHS 10,000-100,000 2-3 MONTHS 3,000-50,000 2ND TRIMESTER 1,000-50,000 3RD TRIMESTER Performed By: #### P REGQNT #### [facility] [address] [place] [address] Dr. Yocasta Rae PROGESTERONEon 01-27-2022 Progesterone 8.3 ng/mL Normal [facility] Comment on above: Result Comment: Foll icular phase 0.1 - 0.9 Luteal phase 1.8 - 23.9 Ovulation phase 0.1 - 12.0 First trimester 11.0 - 44.3 Second trimester 25.4 - 83.3 Third trimester 58.7 - 214.0 Postmenopausal 0.0 - 0.1 Performed By: #### D DIM #### [facility] [address] [address] [address] Yocasta Rae Encounters Encounter Date Encounter Type Care Provider Facility Start: 05-01-2024 End: 05-01-2024 ambulatory EDMUNDO Kelvin TREY Not Available Start: 01-06-2023 End: 01-07-2023 ambulatory ZAKIYA RIVAS Facility:[facility] Start: 12-28-2022 End: 12-29-[address] JONATHON MCCORMACK . Facility:[facility] Start: 12-25-2022 End: 12-26-[address] JONATHON MCCORMACK . Facility:[facility] Start: 12-21-2022 End: 12-22-[address] JONATHON MCCORMACK . Facility:[facility] Start: 10-27-2022 End: 10-28-[address] JONATHON MCCORMACK . Facility:[facility] Start: 09-25-2022 End: 09-26-[address] JONATHON MCCORMACK . Facility:[facility] Start: 09-03-2022 End: 09-04-[address] JONATHON MCCORMACK . Facility:[facility] Start: 08-27-2022 End: 08-28-[address] JONATHON MCCORMACK . Facility:[facility] Start: 08-04-2022 End: 08-05-[address] JONATHON MCCORMACK . Facility:[facility] Start: 07-28-2022 End: 07-29-[address] JONATHON MCCORMACK . Facility:[facility] Start: 06-23-2022 End: 07-18-[address] JONATHON MCCORMACK . Facility:[facility] Start: 05-28-2022 End: 05-29-[address] JONATHON MCCORMACK . Facility:[facility] Start: 03-29-2022 End: 03-30-[address] JONATHON MCCORMACK . Facility:[facility] Start: 03-05-2022 End: 03-06-[address] JONATHON MCCORMACK . Facility:[facility] Start: 02-26-2022 End: 02-27-[address] JONATHON MCCORMACK . Facility:[facility] Start: 02-02-2022 End: 02-15-[address] JONATHON MCCORMACK . Facility:[facility] Start: 01-26-2022 End: 01-27-[address] KELLYNadir PUENTESKSENIA . Facility: Payers Date Payer Category Payer Unknown [id number] 2.16.84 [id number] 1985 Unknown [id number] 2.16.84 [id number] 1983 Unknown [id number] 2.16.84 [id number] 1983 Unknown [id number] 2.16.84 0.1.211530.3.579.2.593 1983 Unknown [id number] 2.16.84 0.1.050604.3.579.2.593 1983 Unknown [id number] 2.16.84 0.1.081739.3.579.2.593 1983 Unknown [id number] 2.16.84 0.1.890338.3.579.2.593 1983 Unknown [id number] 2.16.84 0.1.826384.3.579.2.593 1983 Unknown [id number] 2.16.84 0.1.545889.3.579.2.593 1983 Unknown [id number] 2.16.84 0.1.078351.3.579.2.593 1983 Unknown [id number] 2.16.84 0.1.247403.3.579.2.593 1983 Unknown [id number] 2.16.84 0.1.389066.3.579.2.593 1983 Unknown [id number] 2.16.84 0.1.085564.3.579.2.593 1983 Unknown [id number] 2.16.84 0.1.916231.3.579.2.593 1983 Unknown [id number] 2.16.84 0.1.149533.3.579.2.593 1983 Unknown [id number] 2.16.84 0.1.752323.3.579.2.593 1983 Unknown [id number] 2.16.84 0.1.286377.3.579.2.593 1983 Unknown [id number] 2.16.84 0.1.796618.3.579.2.1259 1961 Private Health Insurance [id number] Summary Purpose Family History No Family History Records FoundNo Family History Records Found Advance Directives No Advanced Directives Records FoundNo Advanced Directives Records Found Additional Source Comments INFORMATION SOURCE (unrecogn ized section and content) DATE CREATED AUTHOR [facility]/09/2023 [facility] DATE CREATED AUTHOR PAZ ROGERS 05/02/2024 [facility] EPIC FOR RECORDS PERTAINING TO PATIENTS WHO ARE OR HAVE BEEN ENROLLED IN A CHEMICAL DEPENDENCY/SUBSTANCEABUSE PROGRAM, SOME INFORMATION MAY BE OMITTED. This clinical summary was aggregated from multiple sources. Caution should be exercised in using it in the provision of clinical care. This summary normalizes information from multiple sources, and as a consequence, information in this document may materially change the coding, format and clinical context of patient data. In addition, data may be omitted in some cases. CLINICAL DECISIONS SHOULD BE BASED ON THE PRIMARY CLINICAL RECORDS. [facility] [employer] provides no warranty or guarantee of the accuracy or completeness of information in this document.
== END 2024-05-08 06:55 | disposition home or self-care (01) ==
LOC: MAMMO 06:54
PROVIDERS: PCP Family Medicine; Visit Provider Physician Assistant
DX: Z12.31 Encounter for screening mammogram for malignant neoplasm of breast (principal); Z80.7 Family history of other malignant neoplasms of lymphoid, hematopoietic and related tissues; Z80.1 Family history of malignant neoplasm of trachea, bronchus and lung; Z80.41 Family history of malignant neoplasm of ovary
CPT/HCPCS: 77063; 77067